=== PATIENT | female | born 1940 | race Caucasian/White ===

== ENCOUNTER 2019-08-01 11:57 | Emergency (ER) | payer MEDICARE, OTHER ==
--- NOTE | 2019-08-01 12:16 | ER Document Report ---
ED General - General Chief Complaint: Leg Pain Stated Complaint: LEG PAIN Time Seen by Provider: 08/01/19 12:02 Primary Care Provider: DANK CASE MD [Primary Care Provider] - Follow up as needed Notes: 78-year-old female with multiple chronic medical issues including CHF on torsemide and chronic leg swelling presents with right leg swelling redness and pain. Slightly worse than the left. 2 days. No fever. Says she is on a blood thinner but cannot see one in her chart, her chart also says DVT but she is not aware of this. Unclear why she was sent here. Looks like perhaps she is on Plavix? Denies fever no respiratory symptoms other than chronic asthma. No chest pain. No hemoptysis. TRAVEL OUTSIDE OF THE [place] IN LAST 30 DAYS: No - Related Data Allergies/Adverse Reactions: aspirin [Aspirin] Allergy (Severe, Verified 11/11/13 12:12) throat swelling,blisters in mouth iodine [Iodine] Allergy (Intermediate, Verified 11/11/13 12:43) blisters skin latex [Latex] Allergy (Intermediate, Verified 11/11/13 12:14) itching Sulfa (Sulfonamide Antibiotics) Allergy (Intermediate, Verified 11/11/13 12:43) hives,elevated temperature Penicillins Allergy (Unknown, Verified 11/15/13 13:18) adhesive [Adhesive] Adverse Reaction (Mild, Verified 11/11/13 12:15) red, itchy skin x-ray contrast dye Allergy (Severe, Uncoded 11/11/13 12:43) elevated bp, cardiac arrest ivp dye Allergy (Intermediate, Uncoded 11/11/13 12:43) blisters skin, difficulty urinating after tests Past Medical History - General Information source: Patient - Social History Smoking Status: Never Smoker Family History: Reviewed & Not Pertinent - Past Medical History Cardiac Medical History: Reports: Hx Hypertension - medicated Denies: Hx Heart Attack Pulmonary Medical History: Denies: Hx Asthma Neurological Medical History: Reports: Hx Cerebrovascular Accident. Denies: Hx Seizures Endocrine Medical History: Denies: Hx Diabetes Mellitus Type 1, Hx Diabetes Mellitus Type 2 GI Medical History: Denies: Hx Hepatitis, Hx Hiatal Hernia, Hx Ulcer Infectious Medical History: Denies: Hx Hepatitis Past Surgical History: Reports: Hx Cholecystectomy, Hx Hysterectomy, Hx Orthopedic Surgery - left knee surgery- metal knee. Denies: Hx Mastectomy, Hx Open Heart Surgery, Hx Pacemaker - Immunizations Hx Diphtheria, Pertussis, Tetanus Vaccination: - unknown Review of Systems - Review of Systems Notes: REVIEW OF SYSTEMS GEN: Denies fever, chills, weight loss ENT: Denies sore throat, nasal discharge, ear pain EYES: Denies blurry vision, eye pain, discharge CV: Denies chest pain, palpitations, edema RESP: Denies cough, shortness of breath, wheezing GI: Denies abdominal pain, nausea, vomiting, diarrhea MSK: Denies joint pain/swelling, edema, SKIN: Swelling of the right leg LYMPH: Denies swollen glands/lymph nodes NEURO: Denies headache, focal weakness or numbness, dizziness PSYCH: Denies depression, suicidal or homicidal ideation PHYSICAL EXAMINATION General: No acute distress, well-nourished Head: Atraumatic, normocephalic ENT: Mouth normal, oropharynx moist, no exudates or tonsillar enlargement Eyes: Conjunctiva normal, pupils equal, lids normal Neck: No JVD, supple, no guarding CVS: Normal rate, regular rhythm, no murmurs Resp: No resp distress, equal and normal breath sounds bilaterally GI: Nondistended, soft, no tenderness to palpation, no rebound or guarding Ext: Nearly symmetric chronic lower extremity edema 3+ on both sides with scant redness on the medial right distal leg, and a small ecchymotic area on the lateral side that is tender Back: No CVA or midline TTP Skin: No rash, warm Lymphatic: No lymphadeopathy noted Neuro: Awake, alert. Face symmetric. GCS 15. Physical Exam - Vital signs Vitals: Pulse Ox 99 08/01/19 12:21 Course - Re-evaluation Re-evalutation: 08/01/19 12:16 Chronic leg edema, suspect same Possible superficial venous clot on the right versus DVT versus cellulitis Labs ultrasound 08/01/19 15:52 Ultrasound negative labs unremarkable We will treat for cellulitis Insert discharge - Vital Signs Vital signs: Temp Pulse Resp BP Pulse Ox 98 F 20 182/78 H 99 08/01/19 12:55 08/01/19 15:01 08/01/19 14:01 08/01/19 15:01 - Laboratory Result Diagrams: 08/01/19 12:29 - Diagnostic Test Radiology reviewed: Image reviewed, Reports reviewed Discharge - Discharge Clinical Impression: Cellulitis of right leg Condition: Good Disposition: HOME, SELF-CARE Instructions: Cellulitis ([facility]) Prescriptions: Doxycycline Hyclate [Vibramycin 100 mg Tablet] 100 mg PO BID #20 tablet Referrals: DANK CASE MD [Primary Care Provider] - Follow up as needed
[2019-08-01 12:42] LABS: ABSOLUTE BASOPHILS # (AUTO) 0.1 10^3/uL (0.0-0.2); ABSOLUTE EOSINOPHILS # (AUTO) 0.3 10^3/uL (0.0-0.6); ABSOLUTE LYMPHOCYTES (AUTO) 1.7 10^3/uL (0.5-4.7); ABSOLUTE MONOCYTES (AUTO) 0.7 10^3/uL (0.1-1.4); ABSOLUTE NEUT (AUTO) 6.2 10^3/uL (1.7-8.2); BASOPHILS % (AUTO) 0.9 % (0-2); EOSINOPHILS % (AUTO) 3.1 % (0-6); HEMATOCRIT 41.2 % (36.0-47.0); HEMOGLOBIN 14.5 g/dL (12.0-15.5); LYMPHOCYTES % (AUTO) 18.6 % (13-45); MEAN CORPUSCULAR VOLUME 94 fl (80-97); PLATELET COUNT 188 10^3/uL (150-450); RED BLOOD COUNT 4.38 10^6/uL (3.72-5.28); RED CELL DISTRIBUTION WIDTH 12.5 % (11.5-14.0); SEGMENTED NEUTROPHILS % (AUTO) 69.4 % (42-78); TOTAL CELLS COUNTED % (AUTO) 100 %; WHITE BLOOD COUNT 8.9 10^3/uL (4.0-10.5)
[2019-08-01 12:50] LABS: PROTHROMBIN TIME 13.2 SEC (11.4-15.4)
--- NOTE | 2019-08-01 16:30 | RADIOLOGY REPORT (SQ) ---
EXAM DESCRIPTION: VENOUS UNILATERAL LOWER IMAGES COMPLETED DATE/TIME: 08/01/2019 4:19 pm REASON FOR STUDY: RLE swelling COMPARISON: None. TECHNIQUE: Dynamic and static saha scale and color images acquired of the right leg venous system. S elected spectral images acquired with additional compression and augmentation maneuvers. The contrala teral common femoral vein and saphenofemoral junction were also imaged. Images stored on PACS. LIMITATIONS: None. FINDINGS: COMMON FEMORAL: Normal phasicity, compression and augmentation. No visualized echogenic ma terial on saha scale. No defects on color images. FEMORAL: Normal compression and augmentation. No visualized echogenic material on saha scale. No defe cts on color images. POPLITEAL: Normal compression, augmentation. No visualized echogenic material on saha scale. No defec ts on color images. CALF VESSELS: Normal compression, augmentation. No visualized echogenic material on saha scale. No de fects on color images. GSV and SSV: Normal compression, augmentation. No visualized echogenic material on saha scale. No def ects on color images. ANY DEEP VENOUS INSUFFICIENCY: No. ANY EVIDENCE OF POPLITEAL CYST: No. OTHER: No other finding. CONTRALATERAL COMMON FEMORAL VEIN: Normal phasicity, compression and augmentation. No visualized echogenic material on saha scale. No de fects on color images. IMPRESSION: NO EVIDENCE OF DVT OR SVT IN THE RIGHT LEG. TECHNICAL DOCUMENTATION: JOB ID: [id number] 2010 [employer]- All Rights Reserved Reading location - IP/workstation name: [email or web address]
[2019-08-01 19:53] VITALS: BP 200/78
== END 2019-08-01 19:45 | disposition home or self-care (01) ==
LOC: ER 11:57
DX: L03.115 Cellulitis of right lower limb (principal); I11.0 Hypertensive heart disease with heart failure; I50.9 Heart failure, unspecified; Z86.73 Personal history of transient ischemic attack (TIA), and cerebral infarction without residual deficits; Z90.49 Acquired absence of other specified parts of digestive tract; Z90.710 Acquired absence of both cervix and uterus; Z88.6 Allergy status to analgesic agent; Z91.040 Latex allergy status; Z88.2 Allergy status to sulfonamides; Z88.0 Allergy status to penicillin
CPT/HCPCS: 36415; 85025; 85610; 93971; 99284